=== PATIENT | male | born 1990 | race African-American/Black ===

== ENCOUNTER 2018-12-14 08:17 | Emergency (ER) | payer BC ==
[~2018-12-14] VITALS: Ht 182.9 cm; Wt 97.5 kg
[2018-12-14] MEDS ORDERED: KETOROLAC TROMETHAMINE 60 MG/2 ML VIAL IM NR (08:30)
[2018-12-14] MEDS ORDERED: IBUPROFEN 600 MG TAB PO NR (08:42)
[2018-12-14] MEDS ORDERED: IBUPROFEN 600 MG TAB ONE (08:47)
[2018-12-14 08:59] LABS: BILIRUBIN,URINE NEGATIVE (NEGATIVE); CLARITY,URINE CLEAR (CLEAR); COLOR,URINE YELLOW (YELLOW); KETONES,URINE NEGATIVE (NEGATIVE); LEUKOCYTE ESTERASE ,URINE NEGATIVE (NEGATIVE); NITRITE,URINE NEGATIVE (NEGATIVE); PROTEIN,URINE DIPSTICK NEGATIVE (NEGATIVE); URINE UROBILINOGEN 0.2 mg/dL (0.2 - 1)
[2018-12-14 09:08] LABS: EPITHELIAL CELLS,URINE RARE /LPF
--- NOTE | 2018-12-14 09:42 | Diagnostic Imaging Report ---
EXAM: SP LUMBAR AP LATERAL 2-3VWS DATE: 12/14/2018 8:22 AM INDICATION: Back pain COMPARISON: None FINDINGS: 3 views of the lumbar spine were obtained frontal and lateral. There are 5 lumbar type vertebrae. Vertebral body heights are maintained. There is mild narrowing of the L5-S1 disc space. There is no spondylolisthesis. There is facet sclerosis at L5-S1 with a questionable pars defect. Soft tissues unremarkable. IMPRESSION: No acute bony abnormality. Mild narrowing of the L5-S1 disc space, with facet sclerosis and possible pars defect at this level. No spondylolisthesis. Signed by: Dr. Carlos Witt M.D. on 12/14/2018 9:39 AM
[2018-12-14] MEDS ORDERED: ROBAXIN-750750 MG PO (10:06)
[2018-12-14] MEDS ORDERED: ULTRAM50 MG PO (10:06)
[2018-12-14 10:10] VITALS: BP 114/71
== END 2018-12-14 10:14 | disposition home or self-care (01) ==
LOC: ER 08:17
DX: M54.5 Low back pain (principal); S33.5XXA Sprain of ligaments of lumbar spine, initial encounter; M48.061 Spinal stenosis, lumbar region without neurogenic claudication; V43.52XA Car driver injured in collision with other type car in traffic accident, initial encounter; Y92.488 Other paved roadways as the place of occurrence of the external cause
CPT/HCPCS: 72100; 81001; 99283; J1885